=== PATIENT | male | born 1935 | race Caucasian/White ===

== ENCOUNTER 2021-01-29 21:54 | Emergency (ER) | payer MEDICARE, OTHER ==
[~2021-01-29] VITALS: Ht 180.3 cm; Wt 98.4 kg
[2021-01-29] MEDS ORDERED: LIDOCAINE JELLY 2% 10ML URO-JET TOP ONE (22:15)
== END 2021-01-29 23:56 | disposition home or self-care (01) ==
LOC: ER 22:09
DX: R33.9 Retention of urine, unspecified (principal); R30.0 Dysuria; I10 Essential (primary) hypertension; M10.9 Gout, unspecified; Z85.828 Personal history of other malignant neoplasm of skin
CPT/HCPCS: 51700; 99283